=== PATIENT | male | born 1955 | race Caucasian/White ===

== ENCOUNTER → 2019-09-07 14:30 | Outpatient (BNVA) | payer BC, SELFPAY | PROVIDERS: Family Provider Family Medicine; PCP Family Medicine; Visit Provider Specialist | DX: R25.1 Tremor, unspecified (principal) | CPT/HCPCS: 99213 ==

== ENCOUNTER → 2020-08-09 09:27 | Outpatient (BNVA) | payer BC, SELFPAY | PROVIDERS: Family Provider Family Medicine; PCP Family Medicine; Visit Provider Specialist | DX: G20 Parkinson's disease (principal) | CPT/HCPCS: 99214 ==

== ENCOUNTER → 2021-02-07 13:49 | Outpatient (BNVA) | payer BC, SELFPAY | PROVIDERS: Family Provider Family Medicine; PCP Family Medicine; Visit Provider Specialist | DX: G20 Parkinson's disease (principal); G47.00 Insomnia, unspecified | CPT/HCPCS: 99214; 99215 ==

== ENCOUNTER 2021-02-20 09:39 | Outpatient (RCR) | payer MEDICARE, SELFPAY | END 2021-02-27 23:59 | disposition home or self-care (01) | LOC: SPT 09:39 | PROVIDERS: PCP Family Medicine; Referring Provider Specialist; Visit Provider Specialist | DX: G20 Parkinson's disease (principal) | CPT/HCPCS: 97110; 97112; 97162 ==

== ENCOUNTER 2021-02-28 06:00 | Outpatient (RCR) | payer MEDICARE, SELFPAY | END 2021-03-26 10:21 | disposition home or self-care (01) | LOC: SPT 06:00 | PROVIDERS: PCP Family Medicine; Referring Provider Specialist; Visit Provider Specialist | DX: G20 Parkinson's disease (principal) | CPT/HCPCS: 97110; 97112; 97530 ==

== ENCOUNTER → 2021-05-14 09:49 | Outpatient (BNVA) | payer MEDICARE, SELFPAY | PROVIDERS: PCP Family Medicine; Visit Provider Specialist | DX: G20 Parkinson's disease (principal); F02.80 Dementia in other diseases classified elsewhere, unspecified severity, without behavioral disturbance, psychotic disturbance, mood disturbance, and anxiety | CPT/HCPCS: 96116; 99214 ==

== ENCOUNTER 2021-05-15 08:39 | Outpatient (CLI) | payer MEDICARE, SELFPAY ==
[2021-05-15 09:24] LABS: Basophils % 0.5 %; Eosinophils # 0.1 10^3/uL (0.0-0.8); Eosinophils % 1.3 %; Hematocrit 49.2 % (42.0-52.0); Hemoglobin 16.2 g/dL (11.7-16.6); Lymphocytes # 1.2 10^3/uL (0.8-4.8); Lymphocytes % 13.2 %; Mean Corpuscular HGB Conc 32.9 g/dL (30.0-36.0); Mean Corpuscular Hemoglobin 30.5 pg (28.0-34.0); Mean Corpuscular Volume 92.7 fl (80-94); Mean Platelet Volume 9.9 fL (7.4-10.4); Monocytes # 0.6 10^3/uL (0.2-0.9); Monocytes % 6.6 %; Neutrophils # 6.86 10^3/uL (1.8-7.7); Neutrophils % 78.1 %; Nucleated Red Blood Cells % 0 %; Platelet Count 280 10^3/cmm (130-400); Red Blood Count 5.31 10^6/uL (4.1-5.3); Red Cell Distribution Width 13.2 % (12.1-15.1); White Blood Count 8.8 10^3/uL (4.0-10.0)
[2021-05-15 10:20] LABS: Alanine Aminotransferase < 5 U/L (0-41); Albumin Level 4.3 g/dL (3.5-5.2); Alkaline Phosphatase 86 IU/L (40-130); Anion Gap 14.4 (5-19); Aspartate Amino Transferase 10 U/L (0-40); Blood Urea Nitrogen 13 mg/dL (8-23); C Reactive Protein 0.8 mg/L (0.0-4.9); Calcium 8.5 mg/dL (8.5-10.5); Carbon Dioxide 26 mmol/L (22-29); Chloride 103 mmol/L (98-107); Globulin 2.4 g/dL (1.3-4.6); Glomerular Filtration Rate 112.8 mL/min (90-130); Glucose 124 mg/dL (65-115); Osmolality Calculated 290 mOsm/kg (285-295); Potassium 4.4 mmol/L (3.5-5.1); Sodium 139 mmol/L (136-145); Thyroid Stimulating Hormone 0.74 uIU/mL (0.27-4.20); Total Bilirubin 0.4 mg/dL (0.15-1.2); Total Protein 6.7 g/dL (6.6-8.7); Vitamin B12 186 pg/mL (232-1245)
[2021-05-15 12:20] LABS: Folate Level 3.9 ng/mL (4.5-32.2)
[2021-05-18 14:04] LABS: Erythrocyte Sedimentation Rate 2 mm/hr (0-10)
== END 2021-05-15 08:40 | disposition home or self-care (01) ==
LOC: LAB 08:45
PROVIDERS: PCP Family Medicine; Visit Provider Specialist
DX: R20.0 Anesthesia of skin (principal); R20.2 Paresthesia of skin
CPT/HCPCS: 36415; 80053; 82607; 82746; 84443; 85025; 85651; 86140

== ENCOUNTER → 2021-05-28 08:35 | Outpatient (BNVA) | payer MEDICARE, SELFPAY | PROVIDERS: PCP Family Medicine; Visit Provider Specialist | DX: E53.8 Deficiency of other specified B group vitamins (principal); Z71.89 Other specified counseling | CPT/HCPCS: 96372 ==

== ENCOUNTER → 2021-05-29 08:17 | Outpatient (BNVA) | payer MEDICARE, SELFPAY | PROVIDERS: PCP Family Medicine; Visit Provider Specialist | DX: E53.8 Deficiency of other specified B group vitamins (principal); Z71.89 Other specified counseling | CPT/HCPCS: 96372 ==

== ENCOUNTER → 2021-06-04 09:22 | Outpatient (BNVA) | payer MEDICARE, SELFPAY | PROVIDERS: PCP Family Medicine; Visit Provider Specialist | DX: E53.8 Deficiency of other specified B group vitamins (principal); Z71.89 Other specified counseling | CPT/HCPCS: 96372 ==

== ENCOUNTER → 2021-06-11 08:28 | Outpatient (BNVA) | payer MEDICARE, SELFPAY | PROVIDERS: PCP Family Medicine; Visit Provider Specialist | DX: E53.8 Deficiency of other specified B group vitamins (principal); Z71.89 Other specified counseling | CPT/HCPCS: 96372 ==

== ENCOUNTER → 2021-06-18 08:29 | Outpatient (BNVA) | payer MEDICARE, SELFPAY | PROVIDERS: PCP Family Medicine; Visit Provider Specialist | DX: E53.8 Deficiency of other specified B group vitamins (principal); Z71.89 Other specified counseling | CPT/HCPCS: 96372 ==

== ENCOUNTER → 2021-07-02 08:13 | Outpatient (BNVA) | payer MEDICARE, SELFPAY | PROVIDERS: PCP Family Medicine; Visit Provider Specialist | DX: E53.8 Deficiency of other specified B group vitamins (principal); Z71.89 Other specified counseling | CPT/HCPCS: 96372 ==

== ENCOUNTER → 2021-07-23 10:27 | Outpatient (BNVA) | payer MEDICARE, SELFPAY | PROVIDERS: PCP Family Medicine; Visit Provider Family Medicine | DX: E53.8 Deficiency of other specified B group vitamins (principal) | CPT/HCPCS: 82607; 82746 ==

== ENCOUNTER → 2021-08-13 09:41 | Outpatient (BNVA) | payer MEDICARE, SELFPAY | PROVIDERS: PCP Family Medicine; Visit Provider Specialist | DX: G20 Parkinson's disease (principal); E53.8 Deficiency of other specified B group vitamins | CPT/HCPCS: 96116; 96372; 99214 ==

== ENCOUNTER → 2021-10-03 10:28 | Outpatient (BNVA) | payer MEDICARE, SELFPAY | PROVIDERS: PCP Family Medicine; Visit Provider Specialist | DX: E53.8 Deficiency of other specified B group vitamins (principal) | CPT/HCPCS: 96372 ==

== ENCOUNTER → 2021-11-05 08:02 | Outpatient (BNVA) | payer MEDICARE, SELFPAY | PROVIDERS: PCP Family Medicine; Visit Provider Specialist | DX: G20 Parkinson's disease (principal) | CPT/HCPCS: 99214 ==

== ENCOUNTER 2021-11-16 06:00 | Outpatient (RCR) | payer MEDICARE, SELFPAY | END 2021-11-27 23:59 | disposition home or self-care (01) | LOC: SST 06:00 | PROVIDERS: PCP Family Medicine; Referring Provider Specialist; Visit Provider Specialist | DX: G20 Parkinson's disease (principal) | CPT/HCPCS: 92524 ==

== ENCOUNTER → 2022-05-08 08:01 | Outpatient (BNVA) | payer MEDICARE, SELFPAY | PROVIDERS: PCP Family Medicine; Visit Provider Specialist | DX: G20 Parkinson's disease (principal); F02.80 Dementia in other diseases classified elsewhere, unspecified severity, without behavioral disturbance, psychotic disturbance, mood disturbance, and anxiety | CPT/HCPCS: 96116; 99214 ==

== ENCOUNTER 2022-12-03 11:35 | Outpatient (CLI) | payer MEDICARE, SELFPAY ==
--- NOTE | 2022-12-03 11:47 | XRR_ITS ---
PROCEDURE INFORMATION: Exam: XR Chest Exam date and time: 12/03/2022 12:00 PM Age: 66 years old Clinical indication: Pain and injury or trauma; Fall; Blunt trauma (contusions or hematomas); Chest wall pain; Injury details: Pain on the left side of the chest near the sternum. Patient fell last month; Additional info: Chest wall pain / left sternum TECHNIQUE: Imaging protocol: Radiologic exam of the chest. Views: 2 views. COMPARISON: No relevant prior studies available. FINDINGS: Lungs: Lung monae are aerated and clear. No infiltrates or pulmonary congestion. Pleural spaces: Unremarkable. No pleural effusion. No pneumothorax. Heart/Mediastinum: Unremarkable. No cardiomegaly. Bones/joints: Unremarkable for age. XR/XR chest 2V* 72150 IMPRESSION: Negative chest. No active disease.
== END 2022-12-03 11:36 | disposition home or self-care (01) ==
PROVIDERS: PCP Family Medicine; Visit Provider Family Medicine
DX: R07.89 Other chest pain (principal); E53.8 Deficiency of other specified B group vitamins; G20 Parkinson's disease
CPT/HCPCS: 71046; 80053; 82607; 82746; 85025

== ENCOUNTER → 2023-02-12 07:37 | Outpatient (BNVA) | payer MEDICARE, SELFPAY | PROVIDERS: PCP Family Medicine; Visit Provider Specialist | DX: G20 Parkinson's disease (principal); G47.00 Insomnia, unspecified; F02.80 Dementia in other diseases classified elsewhere, unspecified severity, without behavioral disturbance, psychotic disturbance, mood disturbance, and anxiety | CPT/HCPCS: 96116; 99214 ==

== ENCOUNTER 2023-10-03 10:15 | Emergency (ER) | payer MEDICARE, SELFPAY ==
[2023-10-03 10:18] VITALS: BP 214/99; PULSE 72; RESP 18; TEMP 36.8; O2SAT 96
--- NOTE | 2023-10-03 10:19 | ECG_ITS ---
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 Measurements Intervals [place] Rate: 76 P: 59 CA: 136 QRS: -16 QRSD: 97 T: 74 QT: 384 QTc: 433 Interpretive Statements SINUS RHYTHM WITH OCCASIONAL VENTRICULAR PREMATURE COMPLEXES No previous ECG available for comparison Electronically Signed On 10-03-2023 17:06:41 CDT by Severo Young M.D. [email or web address] [email or web address].[employer]/store/NU/[id number] f
[2023-10-03 10:23] LABS: Glucose Point of Care 125 mg/dL (70-110)
--- NOTE | 2023-10-03 10:26 | XR_ITS ---
WS: [id number] Examination: XR chest 1V portable [id number] Reason for Exam: dyspnea/cough Date: October 03, 2023 Comparison: December 03, 2022 Findings: The heart is not grossly enlarged on this AP portable film. The mediastinum is not widened There is no pulmonary edema or pleural effusion. There is no dense consolidation. Impression: No dense consolidation or acute lung process is appreciated.
--- NOTE | 2023-10-03 10:28 | ED_ITS ---
HPI - General Adult 2 General: Chief complaint: Neuro Symptoms/Deficit Stated complaint: weakness Time Seen by Provider: 10/03/23 10:17 Source: patient Mode of arrival: ambulatory History of Present Illness: 67-year-old male presents emergency room with complaints of weakness and some altered mental status. He has chronic right-sided weakness he has a history of Parkinson's patient states for over the last week he is just not felt right today he felt even weaker than he has. He denies any abdominal pain. He has some difficulty with words which is been going on for the last week but has been a new development over the last week. Patient's is particularly over the last week he has noticed swelling in his tongue and difficulty with speech and is little bit worse again this morning. Family came in with him they state that some of this seems to be worse within the last hour, pt states otherwise. He reports worsened this mornign and while he was driving and he pulled over. No recent head trauma patient's blood sugars 125 blood pressure is markedly elevated. Onset (ago): minute(s) Relieving factors: none Exacerbating factors: none Associated symptoms: Reports chest pain; Deny confusion, cough, diaphoresis, decreased appetite, dyspnea, fevers/chills, headache(s), malaise, nausea, rash, palpitations, seizures, short of breath, syncope, vomiting or weakness Treatments prior to arrival: none Review of Systems 2 Const: Denies: fever(s), chills, malaise or diaphoresis Card: Reports: chest pain; Denies: palpitations or syncope Resp: Denies: dyspnea GI: Denies: nausea or vomiting : Denies: dysuria, urinary frequency or urinary urgency Musc: Denies: neck pain or back pain Skin/Breast: Denies: rash Neuro: Denies: headache(s) or confusion PFSH ED 2 PFSH: Medical History Erectile dysfunction Osteoarthritis of knees, bilateral Family History Other Cancer Denies family history of Diabetes CAD (coronary artery disease) Hypertension Stroke Social History Smoking and tobacco/nicotine status: never used tobacco/nicotine Alcohol intake: never Substance/Drug Use: never Physical Exam 2 Const: COMMON NORMALS: no acute distress GENERAL APPEARANCE: cooperative and comfortable ORIENTATION/CONSCIOUSNESS: Yes awake, Yes oriented to person, Yes oriented to place and Yes oriented to time HENMT: COMMON NORMALS: normocephalic, atraumatic and hearing grossly normal bilaterally HEAD & SCALP: normocephalic and atraumatic Resp: COMMON NORMALS: normal respiratory effort, No retractions, No use of accessory muscles and clear to auscultation bilaterally AUSCULTATION: clear to auscultation bilaterally Cardio: COMMON NORMALS: regular rate, regular rhythm and No murmurs present (Cardio) RATE: regular rate RHYTHM: regular rhythm GI: COMMON NORMALS: Soft to palpation and No hepatosplenomegaly present A USCULTATION: Yes normoactive bowel sounds PALPATION: Yes Soft to palpation, No Tenderness to palpation present (GI), No Guarding due to palpation present (GI) and Yes No hepatosplenomegaly present Extremity: COMMON NORMALS: normal to inspection, capillary refill normal, no clubbing, cyanosis or edema, no calf tenderness and no pedal edema Neuro: SENSORIUM/ORIENTATION: Yes oriented to person, Yes oriented to place and Yes oriented to time Skin: COMMON NORMALS: no rashes or lesions noted GENERAL SKIN EXAM: no rashes or lesions noted Course 2 Vital Signs: Vital signs: Vital Signs Temperature 98.3 F 10/03/23 10:18 Pulse Rate 56 L 10/03/23 13:32 Respiratory Rate 19 H 10/03/23 12:27 Blood Pressure 161/88 10/03/23 13:32 Pulse Oximetry 98 10/03/23 13:32 Oxygen Delivery Me thod Room Air 10/03/23 10:18 MDM - General Adult Medical Decision Making NIH score is 5 however this points by his report do not particularly seem to be new been in part from his Parkinson's and impart progressively worse throughout the last week. Stroke alert was not called because patient is outside of [address] Currie and reviewed the discrepancy between what the family is reporting and what the patient is reporting at this point where he concurred not to call a stroke alert as much of this seems to be his Parkinson's and the timing is very questionable his score accounted for by his Parkinson's and would not be adequate for thrombectomy. Patient does not seem to have had any acute neurologic event. He was given his regular dose of carbidopa levodopa and all of the symptoms resolved. I suspect a lot of his symptoms may be he is developing ofttimes prior to his dose of Sinemet being due. They did recently change him from famotidine to a proton pump inhibitor. Patient was able to transfer at the bedside and ambulate at his normal baseline without difficulty. Repeat exam he still has some difficulty with word forming and generalized weakness overall his score would be the same with his deficits attributable to his baseline Parkinson's. Will start him on 81 mg aspirin daily and set him up for an MRI of the head with and without follow-up with Dr. Currie. CTA of the head and head CT were both negative. Medical Records I reviewed the patient's medical records. Lab Data I reviewed the patient's lab results. 10/03/23 10:34 10/03/23 10:34 Laboratory Results WBC 7.92 10^3/uL (3.29-11.43) 10/03/23 10:34 RBC 5.12 10^6/uL (3.85-5.65) 10/03/23 10:34 Hgb 15.80 g/dL (11.27-16.99) 10/03/23 10:34 Hct 46.2 % (37-53) 10/03/23 10:34 MCV 90.2 fl (82-101) 10/03/23 10:34 MCH 30.9 pg (27-33) 10/03/23 10:34 MCHC 34.2 g/dL (30-55) 10/03/23 10:34 RDW 12.6 % (12.1-15.1) 10/03/23 10:34 Plt Count 242 10^3/cmm (157-399) 10/03/23 10:34 MPV 10.2 fL (7.4-10.4) 10/03/23 10:34 Neut % (Auto) 76.1 % 10/03/23 10:34 Lymph % (Auto) 13.5 % 10/03/23 10:34 [place] % (Auto) 8.6 % 10/03/23 10:34 Eos % (Auto) 1.0 % 10/03/23 10:34 Baso % (Auto) 0.4 % 10/03/23 10:34 Neut # (Auto) 6.03 10^3/uL (1.8-7.7) 10/03/23 10:34 Lymph # (Auto) 1.1 10^3/uL (0.8-4.8) 10/03/23 10:34 [place] # (Auto) 0.7 10^3/uL (0.2-0.9) 10/03/23 10:34 Eos # (Auto) 0.1 10^3/uL (0.0-0.8) 10/03/23 10:34 Baso # (Auto) 0.0 10^3/uL (0.0-0.1) 10/03/23 10:34 Nucleated RBC % (auto) 0 % 10/03/23 10:34 Nucleated RBCs # 0.0 /100WBC 10/03/23 10:34 Sodium 137 mmol/L (136-145) 10/03/23 10:34 Potassium 4.2 mmol/L (3.5-5.1) 10/03/23 10:34 Chloride 101 mmol/L (98-107) 10/03/23 10:34 Carbon Dioxide 24 mmol/L (22-29) 10/03/23 10:34 Anion Gap 16.2 (5-19) 10/03/23 10:34 BUN 10 mg/dL (8-23) 10/03/23 10:34 Creatinine 0.7 mg/dL (0.7-1.2) 10/03/23 10:34 GFR Calculation 112.1 mL/min (90-130) 10/03/23 10:34 Glucose 148 mg/dL (65-115) H 10/03/23 10:34 POC Glucose 125 mg/dL (70-110) H 10/03/23 10:19 Calculated Osmolality 286 mOsm/kg (285-295) 10/03/23 10:34 Calcium 9.5 mg/dL (8.5-10.5) 10/03/23 10:34 Total Bilirubin 0.4 mg/dL (0.15-1.2) 10/03/23 10:34 AST 10 U/L (0-40) 10/03/23 10:34 ALT < 5 U/L (0-41) 10/03/23 10:34 Alkaline Phosphatase 82 U/L (40-130) 10/03/23 10:34 Troponin T Baseline < 6 ng/L (0-15) 10/03/23 10:34 Troponin T 120 Minute 6.00 ng/L (0-15) 10/03/23 12:30 Delta Troponin T 0.33438 ABS# (0-10) 10/03/23 12:30 Total Protein 6.6 g/dL (6.6-8.7) 10/03/23 10:34 Albumin 4.4 g/dL (3.5-5.2) 10/03/23 10:34 Globulin 2.2 g/dL (1.3-4.6) 10/03/23 10:34 Urine Color Light yellow (Yellow) 10/03/23 11:15 Urine Appearance Hazy (CLEAR) A 10/03/23 11:15 Urine pH 7 (5-7) 10/03/23 11:15 Ur Specific [place] 1.015 (1.005-1.030) 10/03/23 11:15 Urine Protein Neg (Negative) 10/03/23 11:15 Urine Glucose (UA) Norm (Normal) 10/03/23 11:15 Urine Ketones Negative (Negative) 10/03/23 11:15 Urine Blood 2+ (Negative) H 10/03/23 11:15 Urine Nitrate Negative (Negative) 10/03/23 11:15 Urine Bilirubin Neg (Negative) 10/03/23 11:15 Urine Urobilinogen Neg mg/dL (Negative) 10/03/23 11:15 Ur Leukocyte Esterase Negative (Negative) 10/03/23 11:15 Urine RBC 0-4 /hpf (0-2) H 10/03/23 11:15 Urine WBC 0-4 /hpf (0-5) H 10/03/23 11:15 Ur Squamous Epith Cells 0-4 /hpf (0-5) H 10/03/23 11:15 Amorphous Sediment 3+ /hpf 10/03/23 11:15 Urine Bacteria Trace /hpf (NONE) 10/03/23 11:15 Urine Mucus Trace /hpf 10/03/23 11:15 All radiology interpretation(s) finalized by discharge Discharge Plan Discharge Patient Disposition: Home Clinical Impression: Parkinson's Disease, HTN (hypertension) Condition: Stable Prescriptions: New aspirin 81 mg tablet,delayed release (DR/EC) 81 mg PO DAILY Qty: 30 0RF lisinopril 10 mg tablet 10 mg PO DAILY Qty: 30 0RF No Action naproxen sodium [Aleve] 220 mg capsule 220 mg PO BID PRN (Reason: Pain) sennosides [Senna Laxative] 8.6 mg tablet 8.6 mg PO BID PRN (Reason: Constipation) folic acid 400 mcg tablet 0.4 mg PO DAILY carbidopa-levodopa 25-100 mg tablet See Rx Instructions .ROUTE .COMPLEX 90 Days Qty: 630 4RF Dose Instruction: TAKE 2 TABLETS BY MOUTH EVERY MORNING, TWO AT NOON, TWO IN THE AFTERNOON AND ONE AT BEDTIME Rx Instructions: TAKE 2 TABLETS BY MOUTH EVERY MORNING, TWO AT NOON, TWO IN THE AFTERNOON AND ONE AT BEDTIME galantamine 8 mg tablet 8 mg PO BID 90 Days Qty: 180 3RF Rx Instructions: administer with AM and PM meals mecobalamin (vitamin B12) 2,500 mcg tablet,chewable 2,500 mcg PO DAILY 90 Days Qty: 90 0RF sildenafil [Viagra] 100 mg tablet 100 mg PO DAILY PRN (Reason: sexual activity) Qty: 10 4RF Rx Instructions: 1/4 to 1//2, to 1 as need. famotidine 20 mg tablet 20 mg PO BID Qty: 60 4RF hydroxyzine pamoate 25 mg capsule 25 mg PO TID PRN (Reason: too much saliva) Qty: 60 1RF Rx Instructions: begin just at bed time for excess saliva acetaminophen 500 mg Tablet 1,000 mg PO BID amitriptyline 10 mg tablet 10 mg PO BID Ambien 5 mg tablet 5 mg PO QPM PRN (Reason: insomnia) Rx Instructions: take at 1:00 after awakening first time Discharge Orders: Discharge ED (Routine); Ordered 10/03/23 Ordered By: Oli Sharma Referrals: Deborah Vaca MD [Primary Care Provider] - Discharge Diet: Usual diet Discharge Activity: Increase activity as tolerated Patient Instructions: Opioid Safety, Pain Management Activity Restrictions/Additional Instructions: Thank you for choosing [facility] for your healthcare needs today. Please realize this is an emergency room and that we are providing you with a medical screening exam and this may not be complete and all inclusive of all the testing and or work up that you may need to determine your ailment or severity of your illness. It is very important that you follow up as instructed or that you return to the Emergency Department should you have concerns or if your condition changes or worsens in any way. CT of your head and your head and neck were normal. Recommend that you take baby aspirin daily case management will set up an MRI of the head. Recommend you follow-up with Dr. Currie. Your blood pressure was also elevated while you are in the emergency room recommend you start taking lisinopril 10 mg once daily. Follow-up with your doctor within the next week to reevaluate blood pressure. Coding Level of Care Code ED Air Hose Coupler for Diane Basurto NIH stroke score NIHSS Level Of Consciousness - 1a: 0 Level Of Consciousness Questions - 1b: Both Correct Level Of Consciousness Commands - 1c: Both Correct Best Gaze - 2: Normal Visual Allan - 3: No Visual Loss Facial Palsy - 4: Normal Motor Arm Right - 5: No Drift Motor Arm Left - 5: No Drift Motor Leg Right - 6: Effort Against [place] Motor Leg Left - 6: No Drift Limb Ataxia - 7: Present In Two Limbs Sensory - 8: Normal Best Language - 9: No Aphasia Dysarthia - 10: Mild/Moderate Dysarthia Extinction And Inattention - 11: 0 Score Total Score: 5
--- NOTE | 2023-10-03 10:35 | CT_ITS ---
WS: [id number] CTA HEAD AND NECK TECHNIQUE: Contrast enhanced CTA of the head and neck with coronal and sagittal reformatted images an d maximum intensity projection (MIP) images. NASCET criteria utilized. CLINICAL INFORMATION: speech weakness COMPARISON: None. DLP: 1040.[address] scans at [facility] use at least one of these dose optimization techniques: automated e xposure control; mA and/or kV adjustment per patient size (includes targeted exams where dose is matc hed to clinical indication); or iterative reconstruction. FINDINGS: No evidence of intracranial hemorrhage or mass effect. Ventricular system and basal cistern s are patent. Incidental dystrophic calcification along the falx. Mild small vessel changes. Mild par enchymal volume loss. Intracranial vascular calcification. Paranasal sinuses and mastoid air cells ar e well aerated. RIGHT: RIGHT common carotid artery is patent. Mild stenosis RIGHT proximal ICA measuring approximatel y 40%. RIGHT ICA is patent to the skull base. Mild atheromatous plaque RIGHT carotid bulb extending i nto the ICA. LEFT: LEFT common carotid artery is patent. Mild atheromatous plaque LEFT carotid bulb extending into the ICA. LEFT ICA is patent to the skull base. No significant LEFT ICA stenosis. Codominant and patent vertebral arteries bilaterally. Proximal basilar artery is patent. Normal vascu larity to the LIGHT INDUSTRIAL territory bilaterally. Both ICAs are patent at the skull base. Patent anterior communicating artery. Normal vascularity to t he WERO and MCA territories bilaterally. No evidence of proximal flow-limiting stenosis. IMPRESSION: 1. RIGHT ICA stenosis approximately 40%. 2. No significant LEFT ICA stenosis. 3. Codominant and patent vertebral arteries bilaterally. 4. No evidence of intracranial flow-limiting stenosis. Notified Oli Sharma DO at 10/03/2023 11:25AM.
[2023-10-03 10:53] LABS: Basophils % 0.4 %; Eosinophils # 0.1 10^3/uL (0.0-0.8); Hematocrit 46.2 % (37-53); Lymphocytes # 1.1 10^3/uL (0.8-4.8); Lymphocytes % 13.5 %; Mean Corpuscular HGB Conc 34.2 g/dL (30-55); Mean Corpuscular Hemoglobin 30.9 pg (27-33); Mean Corpuscular Volume 90.2 fl (82-101); Mean Platelet Volume 10.2 fL (7.4-10.4); Monocytes # 0.7 10^3/uL (0.2-0.9); Monocytes % 8.6 %; Neutrophils # 6.03 10^3/uL (1.8-7.7); Neutrophils % 76.1 %; Nucleated Red Blood Cells % 0 %; Platelet Count 242 10^3/cmm (157-399); Red Blood Count 5.12 10^6/uL (3.85-5.65); Red Cell Distribution Width 12.6 % (12.1-15.1); White Blood Count 7.92 10^3/uL (3.29-11.43)
[2023-10-03] MEDS: iohexol 350 mg/mL 500 mL Btl (per mL) IV (10:56)
--- NOTE | 2023-10-03 10:57 | PC.PHAR ---
PT STATES DR CHANGED HIS ACID REFLUX MEDICATION. I CALLED THE CLINIC AND THEY VERIFIED THE PT IS TAKING THE SAME MEDICATION. PT STATES TAKES TYLENOL 500 MG 2 TABLETS TWICE DAILY AND THEN TAKES MORE IF NEEDED.
[2023-10-03 11:09] LABS: Troponin(5th) Baseline < 6 ng/L (0-15)
[2023-10-03 11:12] LABS: Alanine Aminotransferase < 5 U/L (0-41); Albumin Level 4.4 g/dL (3.5-5.2); Alkaline Phosphatase 82 U/L (40-130); Anion Gap 16.2 (5-19); Aspartate Amino Transferase 10 U/L (0-40); Blood Urea Nitrogen 10 mg/dL (8-23); Calcium 9.5 mg/dL (8.5-10.5); Carbon Dioxide 24 mmol/L (22-29); Chloride 101 mmol/L (98-107); Globulin 2.2 g/dL (1.3-4.6); Glomerular Filtration Rate 112.1 mL/min (90-130); Glucose 148 mg/dL (65-115); Osmolality Calculated 286 mOsm/kg (285-295); Potassium 4.2 mmol/L (3.5-5.1); Sodium 137 mmol/L (136-145); Total Bilirubin 0.4 mg/dL (0.15-1.2); Total Protein 6.6 g/dL (6.6-8.7)
[2023-10-03] MEDS: labetalol 5 mg/mL SDV 20mL 10 MG IVP (11:12)
[2023-10-03 11:33] VITALS: BP 162/88; PULSE 56; RESP 18; O2SAT 97
[2023-10-03 11:40] LABS: Add Urine Microscopic? YES; Bilirubin Urine Neg (Negative); Blood Urine 2+ (Negative); Glucose Urine UA Norm (Normal); Ketones Urine Negative (Negative); Leukocyte Esterase Urine Negative (Negative); Nitrate Urine Negative (Negative); Protein Urine Neg (Negative); Specific Gravity, Urine 1.015 (1.005-1.030); Urine Appearance Hazy (CLEAR); Urine Color Light yellow (Yellow); Urobilinogen Urine Neg (Negative); pH Urine 7 (5-7)
[2023-10-03 11:44] LABS: Add Urine Culture? No; Amorphous Sediment Urine 3+ /hpf; Bacteria Urine TRACE /hpf; Mucus Urine TRACE /hpf; RBC Urine 0-4 /hpf (0-2); Squamous Epithelial Cell Urine 0-4 /hpf (0-5); WBC Urine 0-4 /hpf (0-5)
--- NOTE | 2023-10-03 12:03 | PC.NURSE ---
Ambulation trial: per Dr. Sharma to ambulate pt. pt was able to ambulated to outside room 10 with no acute complications. pt does have abnormal gait, short stepping noted to L leg, pt states this is normal for him. Dr. Sharma notified of findings.
--- NOTE | 2023-10-03 12:19 | ECG_ITS ---
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 Measurements Intervals [place] Rate: 48 P: 67 GA: 165 QRS: -19 QRSD: 88 T: 64 QT: 433 QTc: 390 Interpretive Statements SINUS BRADYCARDIA Compared to ECG 10/03/2023 10:18:43 Sinus rhythm no longer present Ventricular premature complex(es) no longer present Electronically Signed On 10-03-2023 17:37:19 CDT by Severo Young M.D. [id number]
[2023-10-03 12:27] VITALS: BP 153/78; PULSE 55; RESP 19; O2SAT 94
[2023-10-03 12:54] LABS: Troponin 5 2HR Delta 0.00001 ABS# (0-10)
[2023-10-03 13:32] VITALS: BP 161/88; PULSE 56; O2SAT 98
--- NOTE | 2023-10-07 15:24 | PC.SOCIAL ---
Neurology Referral Referral to clinic at this time. Clinic to contact patient with appt date/time.
--- NOTE | 2023-10-15 09:17 | DCPLANNER ---
sent outpatient order to centralized scheduling MRI Head
== END 2023-10-03 13:37 | disposition home or self-care (01) ==
PROVIDERS: Emergency Provider Family Medicine; PCP Family Medicine
DX: G20.A1 Parkinson's disease without dyskinesia, without mention of fluctuations (principal); I10 Essential (primary) hypertension
CPT/HCPCS: 36415; 36416; 70496; 70498; 71045; 80053; 81001; 82962; 84484; 85025; 93005; 96374; 99285; J3490; Q9967

== ENCOUNTER → 2023-10-29 09:18 | Outpatient (BNVA) | payer MEDICARE, SELFPAY | PROVIDERS: PCP Family Medicine; Visit Provider Specialist | DX: Z09 Encounter for follow-up examination after completed treatment for conditions other than malignant neoplasm (principal); G45.9 Transient cerebral ischemic attack, unspecified; G20.B2 Parkinson's disease with dyskinesia, with fluctuations; G31.83 Neurocognitive disorder with Lewy bodies; F02.B0 Dementia in other diseases classified elsewhere, moderate, without behavioral disturbance, psychotic disturbance, mood disturbance, and anxiety | CPT/HCPCS: 99214; 99215 ==

== ENCOUNTER → 2024-05-13 13:02 | Outpatient (BNVA) | payer MEDICARE, SELFPAY | PROVIDERS: PCP Family Medicine; Visit Provider Specialist | DX: G20.B2 Parkinson's disease with dyskinesia, with fluctuations (principal); Z09 Encounter for follow-up examination after completed treatment for conditions other than malignant neoplasm; G45.9 Transient cerebral ischemic attack, unspecified; G31.83 Neurocognitive disorder with Lewy bodies; F02.B0 Dementia in other diseases classified elsewhere, moderate, without behavioral disturbance, psychotic disturbance, mood disturbance, and anxiety; R03.0 Elevated blood-pressure reading, without diagnosis of hypertension | CPT/HCPCS: 99214 ==

== ENCOUNTER → 2024-06-10 11:47 | Outpatient (BNVA) | payer MEDICARE, SELFPAY | PROVIDERS: PCP Family Medicine; Visit Provider Family Medicine | DX: E53.8 Deficiency of other specified B group vitamins (principal); Z79.899 Other long term (current) drug therapy | CPT/HCPCS: 80053; 85025 ==

== ENCOUNTER → 2024-11-11 13:15 | Outpatient (BNVA) | payer MEDICARE, SELFPAY | PROVIDERS: PCP Family Medicine; Visit Provider Specialist | DX: G20.B2 Parkinson's disease with dyskinesia, with fluctuations (principal); G45.9 Transient cerebral ischemic attack, unspecified; G31.83 Neurocognitive disorder with Lewy bodies; F02.B0 Dementia in other diseases classified elsewhere, moderate, without behavioral disturbance, psychotic disturbance, mood disturbance, and anxiety; R03.0 Elevated blood-pressure reading, without diagnosis of hypertension | CPT/HCPCS: 99213 ==